=== PATIENT | female | born 1985 | race Caucasian/White ===

== ENCOUNTER 2018-07-20 10:53 | Day surgery (SDC) | payer OTHER ==
[2018-07-20] MEDS ORDERED: SOD CHLORIDE 0.9% 1,000 ML IV (11:30)
[2018-07-20] MEDS: CEFAZOLIN 1 GM/50 ML (PMX) 50 ML IVPB ×2 (13:33→14:35)
[2018-07-20] MEDS: MIDAZOLAM 1 MG/ML 2 ML INJ ×2 (14:35→14:38)
[2018-07-20] MEDS: FENTAnyl 50 MCG/ML VIAL (14:35)
[2018-07-20] MEDS: HEPARIN 1000 UNITS/ML 10 ML INJ (14:35)
[2018-07-20] MEDS: LIDOCAINE 1% (MDV) 20 ML INJ (14:35)
[2018-07-20] MEDS: POLYMYXIN/BACITRACIN 1L IRRIG IRR (14:50)
[2018-07-20] MEDS ORDERED: HYDROCODONE/APAP (5/325) TAB PO (15:30)
== END 2018-07-24 08:05 | disposition home or self-care (01) ==
LOC: SDS 10:53
DX: C50.912 Malignant neoplasm of unspecified site of left female breast (principal)
CPT/HCPCS: 36561; 76942

== ENCOUNTER → 2018-07-26 | Outpatient (CLI) | payer OTHER | END | disposition home or self-care (01) | LOC: NUC 10:26 | DX: C50.919 Malignant neoplasm of unspecified site of unspecified female breast (principal) | CPT/HCPCS: 78472 ==